=== PATIENT | female | born 1935 | race Hispanic/Latino ===

== ENCOUNTER → 2019-03-23 | Outpatient (CLI) | payer MEDICARE ==
[~2019-03-23] MED LIST: REGADENOSON 0.4 MG/5 ML SYR IV ONE
== END ==
LOC: NM 08:47
PROVIDERS: ATTEND Internal Medicine Interventional Cardiology
DX: R07.9 Chest pain, unspecified (principal); I20.8 Other forms of angina pectoris
CPT/HCPCS: 36415; 78452; 82948; 93017; 93306; A9502; J2785

== ENCOUNTER 2021-02-02 20:27 | Emergency (ER) | payer MEDICARE ==
[~2021-02-02] VITALS: Ht 154.9 cm; Wt 68.0 kg
== END 2021-02-02 21:45 | disposition home or self-care (01) ==
LOC: FSED 21:00
DX: S01.01XA Laceration without foreign body of scalp, initial encounter (principal); W01.190A Fall on same level from slipping, tripping and stumbling with subsequent striking against furniture, initial encounter; Y93.01 Activity, walking, marching and hiking; Y92.008 Other place in unspecified non-institutional (private) residence as the place of occurrence of the external cause
CPT/HCPCS: 70450; 99283

== ENCOUNTER 2021-02-12 09:48 | Emergency (ER) | payer MEDICARE ==
[~2021-02-12] VITALS: Ht 154.9 cm; Wt 65.8 kg
== END 2021-02-12 10:15 | disposition home or self-care (01) ==
LOC: FSED 10:11
DX: Z48.02 Encounter for removal of sutures (principal); G47.00 Insomnia, unspecified
CPT/HCPCS: 99283

== ENCOUNTER 2022-01-01 17:33 | Emergency (ER) | payer MEDICARE, OTHER ==
[~2022-01-01] VITALS: Ht 152.4 cm; Wt 68.0 kg
[2022-01-01 20:23] VITALS: BP 175/84
== END 2022-01-01 20:23 | disposition home or self-care (01) ==
LOC: FSED 17:43
DX: S40.011A Contusion of right shoulder, initial encounter (principal); M75.81 Other shoulder lesions, right shoulder; W01.0XXA Fall on same level from slipping, tripping and stumbling without subsequent striking against object, initial encounter; Y93.01 Activity, walking, marching and hiking; Y92.008 Other place in unspecified non-institutional (private) residence as the place of occurrence of the external cause; I10 Essential (primary) hypertension; G47.00 Insomnia, unspecified
CPT/HCPCS: 99283

== ENCOUNTER 2022-04-23 11:19 | Emergency (ER) | payer MEDICARE ==
[~2022-04-23] VITALS: Ht 152.4 cm; Wt 64.4 kg
[2022-04-23] MEDS ORDERED: ZITHROMAX250 MG PO (12:15)
== END 2022-04-23 12:28 | disposition home or self-care (01) ==
LOC: FSED 11:52
DX: R05.9 Cough, unspecified (principal); J20.9 Acute bronchitis, unspecified; I10 Essential (primary) hypertension; E11.9 Type 2 diabetes mellitus without complications; G47.00 Insomnia, unspecified
CPT/HCPCS: 87400; 99282

== ENCOUNTER → 2024-10-08 | Outpatient (REF) | payer MEDICARE ==
[~2024-10-08] MED LIST changes: -REGADENOSON 0.4 MG/5 ML SYR IV ONE; +ZITHROMAX250 MG PO
== END ==
LOC: DX 09:21
PROVIDERS: ATTEND Internal Medicine
DX: M81.0 Age-related osteoporosis without current pathological fracture (principal)
CPT/HCPCS: 77080